=== PATIENT | male | born 1970 | race Caucasian/White ===

== ENCOUNTER 2025-02-17 14:26 | Emergency (ER) | payer BC ==
[2025-02-17 15:01] VITALS: TEMP 97
[2025-02-17] MEDS ORDERED: Zofran 4 MG/2 ML VIAL ONE (15:24)
[2025-02-17] MEDS ORDERED: TRANDATE 20 MG/4 ML SYRINGE IV ONE (15:25)
[2025-02-17] MEDS ORDERED: MORPHINE SULFATE 4 MG INJ ONE (15:25)
[2025-02-17] MEDS: MORPHINE SULFATE 4 MG INJ IV ONE (15:27)
[2025-02-17] MEDS: Zofran 4 MG/2 ML VIAL IV ONE (15:27)
[2025-02-17] MEDS: TRANDATE 20 MG/4 ML SYRINGE IV ONE (15:27)
[2025-02-17 15:29] LABS: BASOPHIL % 0.3 % (0.2-1.2); Basophil (Absolute #) 0.03 x10^3/uL (0.01-0.08); Eosinophil (Absolute #) 0.01 x10^3/uL (0.04-0.54); Hematocrit 46.8 % (40.1-51.0); Hemoglobin 16.0 g/dL (13.7-17.5); IMMATURE GRAN # 0.04 x10^3u/L (0.001-0.031); IMMATURE GRAN % 0.4 % (0.001-0.429); Lymphocyte (Absolute #) 0.79 x10^3/uL (1.32-3.57); Mean Corpuscular Hemoglobin 30.7 pg (25.7-32.2); Mean Corpuscular Hgb Concent. 34.2 g/dL (32.3-36.5); Monocyte (Absolute #) 0.18 x10^3/uL (0.30-0.82); NUCLEATED RBC # 0.00 x10^3u/L (0.00-0.012); NUCLEATED RBC % 0.0 % (0.00-0.2); Platelet Count 282 x10^3/uL (163-337); Red Blood Count 5.21 x10^6/uL (4.63-6.08); White Blood Count 11.1 x10^3/uL (4.23-9.07)
[2025-02-17 15:47] LABS: Calcium 8.9 mg/dL (8.4-10.2); Carbon Dioxide 24.0 mmol/L (22-30); Creatinine 1 0.88 mg/dL (0.66-1.25); EST GLOMERULAR FILTRATION RATE 102.8 ML/MIN; Glucose 132.0 mg/dL (74-106); Potassium 3.7 mmol/L (3.5-5.1); SGOT/AST 31.0 U/L (17-59); SGPT/ALT 29.0 U/L (0-50); Total Protein 7.8 g/dL (6.3-8.2)
--- NOTE | 2025-02-17 16:38 | ERPHSYRPT ---
- History of Present Illness Patient Subjective Stated Complaint: PT HERE FOR HEADACHE WITH VOMITING THAT STARTED THIS MORNING, HE BELIEVES IT IS FROM HE'S B/P. HE STATES HE HAD AN EPIDSODE LIKE THIS 2 WEEKS AGO AND WENT TO [facility] WHERE HE HAD LABS.CT SCAN AND MEDS, HE HAS NOT FOLLOWED UP UNTIL TODAY FOR THIS AND WAS SENT HERE Triage Nursing Assessment: PT ALERT, AND ORIENTED, WALKED IN, RESP EASY, SKIN W/D/P. NO COUGH, MUCUS MEMBRANES MOIST, NO EDEMA NOTED, MOVES ALL EXT WELL, Physician History: Blood pressure elevated, patient has had last 2 weeks, he is seen by his primary care doctor sent to Emergency Department for evaluation, he is currently taking 2 blood pressure medications, lisinopril and hydrochlorothiazide, he supposed be taking amlodipine but he stopped it because it was causing swelling in his ankles, he also had some nausea today he denies any weakness to his upper or lower extremities, he denied any blurred vision or loss of vision Timing/Duration: week(s) (2) Quality: aching Head Pain Location: global Severity of Pain-Max: moderate Severity of Pain-Current: moderate Associated Symptoms: nausea/vomiting Allergies/Adverse Reactions: No Known Drug Allergies Allergy (Unverified 02/17/25 14:58) Home Medications: Clonidine HCl 0.1 mg [Clonidine 0.1 mg Tablet] 1 ea DAILY 02/17/25 [History] Losartan/Hydrochlorothiazide [Losartan-Hctz 50-12.5 mg Tab] 1 ea DAILY 02/17/25 [History] Hx Influenza Vaccination/Date Given: No Hx Pneumococcal Vaccination/Date Given: No Immunizations Up to Date: Yes Travel Risk - International Travel Have you traveled outside of the country in past 3 weeks: No - Emerging Infectious Disease Are you exhibiting symptoms associated with any current EIDs: No - Past Medical History Pertinent Past Medical History: Yes Cardiac History: Hypertension Other Medical History: APPEDECTS CA - Past Surgical History Past Surgical History: Yes Gastrointestinal: Appendectomy, Colon Resection, Hernia Repair Musculoskeletal: Orthopedic Surgery Other Surgical History: KNEE X 2 - Social History Smoking Status: Never smoker Exposure to second hand smoke: No Drug Use: none - Social Determinants of Health Will the patient participate in the screening: Declined to provide - Nursing Vital Signs Nursing Vital Signs: Initial Vital Signs Temperature 97.0 F 02/17/25 15:00 Pulse Rate 78 11/03/25 15:00 Respiratory Rate 18 02/17/25 15:00 Blood Pressure 167/107 02/17/25 15:00 O2 Sat by Pulse Oximetry 96 02/17/25 15:00 Pain Scale Pain Intensity 5 - Physical Exam General Appearance: no apparent distress Eye Exam: PERRL/EOMI Ears, Nose, Throat Exam: normal ENT inspection, moist mucous membranes Neck Exam: normal inspection, supple, full range of motion, No meningismus Respiratory Exam: normal breath sounds, lungs clear Cardiovascular Exam: regular rate/rhythm, normal heart sounds Gastrointestinal/Abdominal Exam: soft, No tenderness, No distention Back Exam: normal inspection, normal range of motion Mental Status Exam: alert, oriented x 3, 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 Exam: normal speech, PERRL, No facial droop Coordination/Gait Exam: normal cerebellar function Motor/Sensory Exam: no motor deficit, no sensory deficit Skin Exam: normal color, warm, dry, No rash SpO2 Interpretation: normal SpO2: 97 Ordered Tests: Active Orders 24 hr Category Date Time Status IV Insertion STAT Care 02/17/25 15:19 Completed CBC W DIFF Stat Lab 02/17/25 15:15 Completed CMP Stat Lab 02/17/25 15:15 Completed Medication Summary Discontinued Medications Generic Name Dose Route Start Last Admin Trade Name Cammie PRN Reason Stop Dose Admin Labetalol HCl 20 mg 02/17/25 15:20 02/17/25 15:27 Labetalol Hcl 20 Mg/4 Ml Disp.Syringe IV 02/17/25 15:21 20 mg STAT ONE Administration Labetalol HCl Confirm 02/17/25 15:25 Labetalol Hcl 20 Mg/4 Ml Disp.Syringe Administered 02/17/25 15:26 Dose 20 mg IV .STK-MED ONE Morphine Sulfate 4 mg 02/17/25 15:20 02/17/25 15:27 Morphine Sulfate 4 Mg/Ml Injection IV 02/17/25 15:21 4 mg STAT ONE Administration Morphine Sulfate Confirm 02/17/25 15:25 Morphine Sulfate 4 Mg/Ml Injection Administered 02/17/25 15:26 Dose 4 mg .ROUTE .STK-MED ONE Ondansetron HCl 4 mg 02/17/25 15:21 02/17/25 15:27 Ondansetron Hcl 4 Mg/2 Ml Vial IV 02/17/25 15:22 4 mg STAT ONE Administration Ondansetron HCl Confirm 02/17/25 15:24 Ondansetron Hcl 4 Mg/2 Ml Vial Administered 02/17/25 15:25 Dose 4 mg .ROUTE .[facility]-MED ONE Lab/Rad Data: Laboratory Result Diagrams 02/17/25 15:15 02/17/25 15:15 Laboratory Results 02/17/25 02/17/25 Range/Units 15:15 15:15 WBC 11.1 H (4.23-9.07) x10^3/uL RBC 5.21 (4.63-6.08) x10^6/uL Hgb 16.0 (13.7-17.5) g/dL Hct 46.8 (40.1-51.0) % MCV 89.8 (79.0-92.2) fL MCH 30.7 (25.7-32.2) pg MCHC 34.2 (32.3-36.5) g/dL RDW 12.3 (11.6-14.4) % Plt Count 282 (163-337) x10^3/uL MPV 9.4 (9.4-12.4) fL Gran % 90.5 H (34.0-67.9) % Immature Gran % (Auto) 0.4 (0.001-0.429) % Nucleat RBC Rel Count 0.0 (0.00-0.2) % Eos # (Auto) 0.01 L (0.04-0.54) x10^3/uL Immature Gran # (Auto) 0.04 H (0.001-0.031) x10^3u/L Absolute Lymphs (auto) 0.79 L (1.32-3.57) x10^3/uL Absolute Monos (auto) 0.18 L (0.30-0.82) x10^3/uL Absolute Nucleated RBC 0.00 (0.00-0.012) x10^3u/L Lymphocytes % 7.1 L (21.8-53.1) % Monocytes % 1.6 L (5.3-12.2) % Eosinophils % 0.1 L (0.8-7.0) % Basophils % 0.3 (0.2-1.2) % Absolute Granulocytes 10.07 H (1.78-5.38) x10^3/uL Basophils # 0.03 (0.01-0.08) x10^3/uL Sodium 138 (135-145) mmol/L Potassium 3.7 (3.5-5.1) mmol/L Chloride 105 (98-107) mmol/L Carbon Dioxide 24 (22-30) mmol/L Anion Gap 13.0 (5-15) MEQ/L BUN 14 (9-20) mg/dL Creatinine 0.88 (0.66-1.25) mg/dL Estimated GFR 102.8 ML/MIN Glucose 132 H (74-106) mg/dL Calcium 8.9 (8.4-10.2) mg/dL Total Bilirubin 1.40 H (0.2-1.3) mg/dL AST 31 (17-59) U/L ALT 29 (0-50) U/L Alkaline Phosphatase 81 (38-126) U/L Serum Total Protein 7.8 (6.3-8.2) g/dL Albumin 4.7 (3.5-5.0) g/dL - Progress Progress: improved Progress Note: 02/17/25 16:38 BP 130/86, Clinically improved, may be discharged home on labetalol, he will continue his other medications and follow with primary care doctor in 1 week - Departure Departure Disposition: Home Clinical Impression: Hypertension, uncontrolled Condition: Stable Critical Care Time: No Referrals: LALITA DEL ROSARIO MD [Primary Care Provider, [facility]] - Follow up with PCP 7 days Instructions: Hypertension Prescriptions: Labetalol HCl 100 mg [Trandate 100 MG] 100 mg PO BID #60 tablet Tramadol HCl 50 mg [Ultram 50 mg] 50 mg PO Q6H #6 tablet
[2025-02-17 16:59] VITALS: BP 127/90; PULSE 80; RESP 20
[2025-02-17 17:01] VITALS: O2SAT 97
== END 2025-02-17 16:58 | disposition home or self-care (01) ==
LOC: ED 14:26
DX: I10 Essential (primary) hypertension (principal); R11.0 Nausea; Z79.899 Other long term (current) drug therapy